=== PATIENT | male | born 1965 | race Caucasian/White ===

== ENCOUNTER → 2023-11-04 07:05 | Outpatient (REF) | payer OTHER, SELFPAY | LOC: RAD 07:05 | PROVIDERS: ATTENDING PHYSICIAN Family Medicine; FAMILY PHYSICIAN Family Medicine | DX: R10.32 Left lower quadrant pain (principal) | CPT/HCPCS: 74176 ==

== ENCOUNTER 2024-06-29 06:20 | Day surgery (SDC) | payer OTHER, SELFPAY ==
[2024-06-29 06:10] VITALS: BMI 32.7
[2024-06-29 06:20] VITALS: BP 125/90
[2024-06-29 06:30] VITALS: BMI 32.7
[2024-06-29] MEDS: TYLENOL 1000 MG PO (06:41)
[2024-06-29] MEDS: NORMOSOL-R/PLASMALYTE-A 1000 IV (06:45)
[2024-06-29 07:52] VITALS: BP 125/90
--- NOTE | 2024-06-29 07:54 | OR.RPT ---
Operative Report
Operative Report
Primary Surgeon: Hannah
Pre-op Diagnosis: Groin lipoma
Post-op Diagnosis: Same
Procedure Performed: Excision of groin lipoma
Anesthesia Type: MAC local
Specimen / Cultures: Lipoma
Estimated Blood Loss: 2cc
Complications: None immediate
Operative Findings: 5cm x 4cm x 3cm lipoma excised in toto
Date of Surgery: 06/29/24
Indications: This 59M developed a symptomatic groin lipoma. Imaging confirmed no inguinal hernia. Excision under MAC local was elected.
PROCEDURE: After the patient was marked in preop and informed consent was obtained, the patient was brought to the operative suite and placed supine on the operating table. The patient was sedated, prepped and draped in the usual sterile manner and
an adequate local anesthetic was administered using lidocaine 1% with epi.
A full thickness elliptical incision was made, and dissection was carried down to the capsule using Bovie electrocautery. The mass was freed from surrounding attachments with electrocautery and delivered through the wound. Deep attachments were
taken with electrocautery and the specimen was passed off the table.
The wound was then irrigated with copious sterile saline, and hemostasis was obtained using Bovie electrocautery. The skin was approximated with 3-0 Vicryl deep dermal interrupted sutures and 4-0 monocryl suture in a subcuticular fashion. Topical
skin glue was then applied. All surgical counts were reported as correct.
The patient tolerated the procedure well and was taken to the PACU in stable condition.
[2024-06-29 08:15] VITALS: BP 112/83
[2024-06-29 08:25] VITALS: BP 108/68
[2024-06-29 08:30] VITALS: BP 100/75
== END 2024-06-29 08:40 | disposition home or self-care (01) ==
LOC: SDS 06:20
PROVIDERS: ATTENDING PHYSICIAN Surgery
DX: D17.79 Benign lipomatous neoplasm of other sites (principal)
CPT/HCPCS: 22903; 88304; 88341; 88342

== ENCOUNTER 2025-02-10 23:25 | Emergency (ER) | payer OTHER, SELFPAY ==
[2025-02-10 23:29] VITALS: BP 147/97
--- NOTE | 2025-02-11 00:01 | ED.GENMED ---
History of Present Illness
General
Chief Complaint: Musculo-Skeletal Complaint
Source: patient
Exam Limitations: none
Time Seen by Provider: 02/10/25 23:47
History of Present Illness
History of Present Illness:
See MDM
Past History
Past History
ED Past Medical History: None
ED Past Surgical History: Tonsilectomy
Social History
Tobacco: Non-smoker
Alcohol: Occasional
Personal:
Living: with family
Employment: Employed
Phy Exam
Physical Exam
Physical Exam:
See MDM
Course
Orders/Labs/Results
Orders:
Orders
02/10/25 23:31
Ankle, Right 3 view CR [CR Ankle - Right Min 3 Views *] Urgent
Comment:
Reason For Exam: pain
Foot, Right 3 View [CR Foot - Right Min 3 Views] Urgent
Comment:
Reason For Exam: pain
02/11/25 00:00
Crutches-Treatment ONCE
Ortho Boot Right- Treatment ONCE
Short or tall?: Tall
Vital Signs
Initial and Last Documented VS:
Initial Vital Signs
Temp Pulse BP Pulse Ox
98.5 F 74 147/97 100
02/10/25 23:29 02/10/25 23:29 02/10/25 23:29 02/10/25 23:29
Last Documented Vital Signs
Temp Pulse BP Pulse Ox
98.5 F 74 147/97 100
02/10/25 23:29 02/10/25 23:29 02/10/25 23:29 02/10/25 23:29
MDM/Problems Addressed
Differential Diagnosis Includes:
Note:
CHIEF COMPLAINT(S)
Pain and inability to fully bear weight on the right heel following trauma.
HISTORY OF PRESENT ILLNESS
The patient is a 59-year-old male presenting with pain in the right heel. The patient reports that the discomfort began approximately a week and a half ago, initially manifesting as severe pain in the morning with some improvement upon walking. The
patient did not recall any specific incident, such as an ankle rolling, but notes experiencing soreness that gradually increased in severity. Upon examination and review of an x-ray, it was determined that the patient has experienced an avulsion
fracture at the site of the Achilles tendon attachment. The patient is able to walk on the foot, but reports increased pain with excessive strides or pressure. The injury is suspected to have been developing and culminated in the bone fragment being
pulled by the Achilles tendon, causing the current symptoms.
PLAN
- The patient will be fitted with a boot and provided with crutches to minimize weight-bearing.
- Referral to an orthopedist is advised to discuss potential treatment options, which might include a non-operative approach or surgical reattachment of the bone fragment. The patient is encouraged to contact the orthopedist immediately to arrange
an appointment before an upcoming trip.
- The patient was advised that surgical intervention may not be urgent and could potentially be scheduled after the patients planned vacation if deemed appropriate by the license and permit specialist.
PHYSICAL EXAM
General: Alert, no acute distress.
Skin: Warm, dry.
Head: Normocephalic, atraumatic
Neck: Appears supple, trachea midline.
Eyes, Ears, Nose, Mouth, and Throat: Oral mucosa moist.
Cardiovascular: No signs of cyanosis
Respiratory: Respirations are non-labored.
Abdomen: Non-distended
Musculoskeletal: Swelling and tenderness to posterior aspect of calcaneus. Decreased plantarflexion due to pain. Distal extremity neurovascularly intact
Neurological: No focal neurological deficit observed.
Psychiatric: Cooperative, appropriate mood and affect.
PROBLEM LIST
Acute:
- Right heel pain due to avulsion fracture at the Achilles tendon insertion.
DIFFERENTIAL DIAGNOSIS
The Differential Diagnosis includes, in no particular order and is not limited to:
1. Avulsion fracture of the calcaneal tuberosity
2. Achilles tendonitis
3. Achilles tendon rupture
4. Plantar fasciitis
5. Heel spur
6. Calcaneal fracture
7. Posterior tibial tendon dysfunction
8. Retrocalcaneal bursitis
9. Stress fracture of the calcaneus
10. Tarsal tunnel syndrome
Disposition:
SUMMARY OF ENCOUNTER
The patient, a 59-year-old male, presented with right heel pain and inability to fully bear weight following an avulsion fracture at the insertion site of the Achilles tendon on the calcaneus. Management in the emergency department included
application of a fracture boot and instructions for a [id number] status to alleviate pressure on the site. With an upcoming vacation, I advised immediate follow-up with orthopedics to ensure expedited care.
DISPOSITION
The patient was discharged with specific instructions for follow-up care.
ASSESSMENT
Right heel avulsion fracture at the Achilles tendon insertion.
PLAN
The patient will be fitted with a boot and instructed to remain [id number]. He is advised to contact orthopedics for an appointment before his upcoming trip to discuss potential treatment options.
PATIENT EDUCATION AND COUNSELING
The patient was educated on the importance of minimizing weight-bearing on the affected foot and understanding return precautions. He was also advised on the use of NSAIDs for pain management, if appropriate.
FOLLOW-UP INSTRUCTIONS
The patient is instructed to call the orthopedics office immediately to schedule an appointment for follow-up.
MEDICATION RECONCILIATION
Discussion of NSAIDs for pain management was conducted, though no specific prescription was issued in the emergency department.
MEDICAL DECISION MAKING
- Complex conditions affecting care: Avulsion fracture of the calcaneal tuberosity considered in patient management.
- Risk: Consideration of Admission/Observation: Escalation of care including admission/observation was considered given the complexity and risk of the patients presenting complaint. However, I feel the patient is safe for outpatient management with
close follow-up. Reasoning includes an injury-related work-up that does not reveal any acute life/organ-threatening processes; patient�s symptoms are manageable in current outpatient setting; and the patient is reliable for follow-up and has a clear
understanding of discharge instructions.
DIAGNOSIS
Avulsion fracture of the calcaneal tuberosity (ICD-10: S92.00XA).
*Pulse Oximetry
SaO2: 100
Oxygen Mode of Delivery: Room air
Patient hypoxic: no
*Critical Care Note
Total Time (30-74mins, 75-104mins- exclusive of procedures): Not Applicable
ED Attending Note
-
Portions of this chart may have been created with voice recognition software.� Occasional wrong word or��sound alike� substitutions may have occurred due to the inherent limitations of voice recognition software.
Discharge Plan
Departure
Patient Disposition: Home (Routine Discharge)
Date of Disposition: 02/11/25
Time of Disposition: 00:05
Patient with high blood pressure during this ER visit?: Yes
Discharge Problem:
Closed avulsion fracture of right calcaneus
Prescriptions:
No Action
alprazolam 0.5 mg tablet
0.25 - 0.5 mg PO HSPRN PRN (Reason: Insomnia)
Patient Comments:
mg
red yeast rice 600 mg Tablet
1,200 mg PO DAILY
Blackseed
2 cap PO DAILY
magnesium glycinate
240 mg PO DAILY
Referrals:
Levi Desir MD [Active, Orthopedics]
Ladarius Quintanilla DO [Family Provider, Family Practice]
Activity Restrictions/Additional Instructions:
Please return for any worsening symptoms.
You may return at any time if you have further concerns.
Please follow up with the orthopedist at the first available appointment.
Thank you for choosing [facility].
Interventions
Interventions:
*Risk Screen - Suicide Last Done: 02/10/25 23:29
*General Assessment Last Done: 02/10/25 23:29
*Neglect/Abuse Screening Last Done: 02/10/25 23:29
*ED COVID-19 Vaccine History Last Done: 02/11/25 00:01
Discharge Date and Time
Print Language: CHINESE
[2025-02-11 00:14] VITALS: BP 155/98
== END 2025-02-11 00:25 | disposition home or self-care (01) ==
LOC: EMR 23:25
PROVIDERS: EMERGENCY PHYSICIAN Student in an Organized Health Care Education/Training Program; FAMILY PHYSICIAN Family Medicine
DX: S92.031A Displaced avulsion fracture of tuberosity of right calcaneus, initial encounter for closed fracture (principal); X58.XXXA Exposure to other specified factors, initial encounter
CPT/HCPCS: 99283; 73610; 73630

== ENCOUNTER 2025-06-03 08:05 | Outpatient (REF) | payer OTHER, SELFPAY | END 2025-06-03 23:59 | disposition home or self-care (01) | LOC: WOUND 08:05 | PROVIDERS: ATTENDING PHYSICIAN Registered Nurse; FAMILY PHYSICIAN Family Medicine | DX: L97.912 Non-pressure chronic ulcer of unspecified part of right lower leg with fat layer exposed (principal); T81.89XA Other complications of procedures, not elsewhere classified, initial encounter | CPT/HCPCS: 11042; 99204 ==

== ENCOUNTER 2025-06-14 09:01 | Outpatient (REF) | payer OTHER, SELFPAY | END 2025-06-14 23:59 | disposition home or self-care (01) | LOC: WOUND 09:01 | PROVIDERS: ATTENDING PHYSICIAN Registered Nurse; FAMILY PHYSICIAN Family Medicine | DX: L97.912 Non-pressure chronic ulcer of unspecified part of right lower leg with fat layer exposed (principal); T81.89XA Other complications of procedures, not elsewhere classified, initial encounter | CPT/HCPCS: 17250; 99213 ==

== ENCOUNTER 2025-06-16 10:26 | Outpatient (RCR) | payer OTHER, SELFPAY | END 2025-06-16 23:59 | disposition home or self-care (01) | LOC: RPT 10:26 | PROVIDERS: ATTENDING PHYSICIAN Student in an Organized Health Care Education/Training Program; FAMILY PHYSICIAN Family Medicine | DX: Z47.89 Encounter for other orthopedic aftercare (principal); S92.034D Nondisplaced avulsion fracture of tuberosity of right calcaneus, subsequent encounter for fracture with routine healing; S86.011D Strain of right Achilles tendon, subsequent encounter; M67.01 Short Achilles tendon (acquired), right ankle; Z73.6 Limitation of activities due to disability | CPT/HCPCS: 97110; 97112; 97140; 97162; 97530 ==